=== PATIENT | female | born 1975 | race Caucasian/White ===

== ENCOUNTER → 2020-08-12 15:38 | Outpatient (CLI) | payer BC, SELFPAY ==
--- NOTE | ~2020-08-12 | MR_ITS ---
EXAMINATION: MR thoracic spine wo con DATE: 08/12/2020 16:49 INDICATION: Thoracic back pain. TECHNIQUE: Magnetic resonance imaging (MRI) of the thoracic spine was performed without intravenous c ontrast. Sagittal localizer T1-weighted FSE of the cervical spine was obtained. Thoracic spine sequen bk included sagittal T2-weighted FSE, sagittal T1-weighted FSE, sagittal T2-weighted FS FSE, and axi al T2-weighted FSE. COMPARISON: None FINDINGS: Bone alignment is normal. There are Schmorl's nodes from T7-T8 through T11-T12. There are h emangiomas in T8, T10, T11, and T12 vertebral bodies. There is mildly decreased disc height from T7-T 8 through T9-T10. At T7-T8, there is a left central extrusion with mild central canal stenosis and ve ntral indentation of the spinal cord. At T8-T9, there is a left central extrusion with mild central c anal stenosis. At T9-T10, there is a central extrusion with mild central canal stenosis. At T10-T11, there is a left central extrusion with mild central canal stenosis and ventral indentation of the spi nal cord. There is multilevel mild facet joint osteoarthritis. No neural foraminal stenosis. The spin al cord signal intensity is normal. IMPRESSION: 1. Mild thoracic spondylosis. Reviewed, dictated and finalized at location A.
== END ==
PROVIDERS: PCP Family Medicine
DX: M47.894 Other spondylosis, thoracic region (principal)
CPT/HCPCS: 72146

== ENCOUNTER → 2021-01-08 13:42 | Outpatient (CLI) | payer BC, SELFPAY ==
--- NOTE | ~2021-01-08 | MM_ITS ---
EXAMINATION: MM screening [facility] BI w jose HISTORY: Screening mammogram TECHNIQUE: Craniocaudal and mediolateral oblique 3-D tomosynthesis images were obtained and synthetic 2-D images were generated. CAD analysis was submitted and interpreted. COMPARISON: 09/25/2019, 08/09/2019, 12/09/2017, 11/22/2017 BREAST PARENCHYMAL COMPOSITION: The breasts are heterogeneously dense, which may obscure small masses . FINDINGS: Changes of reduction mammoplasty are again noted. There is no evidence of suspicious mass, calcification, or architectural distortion to suggest malignancy in either breast. There has been no suspicious interval change. IMPRESSION: 1. No mammographic evidence of malignancy. 2. Recommend routine screening mammography in one year. BI-RADS Category 2: Benign finding(s). Reviewed, dictated and finalized at location A.
== END ==
PROVIDERS: Visit Provider Obstetrics & Gynecology
DX: Z12.31 Encounter for screening mammogram for malignant neoplasm of breast (principal)
CPT/HCPCS: 77063; 77067

== ENCOUNTER → 2022-04-20 13:46 | Outpatient (CLI) | payer BC, SELFPAY ==
--- NOTE | ~2022-04-20 | XR_ITS ---
XR knee RT min 4V DATE: 04/20/2022 14:43 INDICATION: Right knee pain TECHNIQUE: Sloan and standing AP, PA and lateral views COMPARISON: None FINDINGS: No fracture or dislocation or joint effusion. No periosteal reaction or bone destruction. J oint spaces are preserved. No radiopaque intra-articular loose body or chondrocalcinosis. IMPRESSION: Negative Reviewed, dictated and finalized at location A. IMPRESSION: Negative
== END ==
PROVIDERS: PCP Family Medicine; Visit Provider Nurse Practitioner
DX: M25.561 Pain in right knee (principal)
CPT/HCPCS: 73564

== ENCOUNTER → 2022-05-13 11:28 | Outpatient (CLI) | payer BC, SELFPAY ==
--- NOTE | ~2022-05-13 | MM_ITS ---
EXAMINATION: MM screening [facility] BI w jose HISTORY: Screening mammogram TECHNIQUE: Craniocaudal and mediolateral oblique 3-D tomosynthesis images were obtained and synthetic 2-D images were generated. CAD analysis was submitted and interpreted. COMPARISON: 3 bilateral screening mammogram 09/25/2019 bilateral diagnostic mammography 08/05/2019 bilateral screening mammogram BREAST PARENCHYMAL COMPOSITION: The breasts are heterogeneously dense, which may obscure small masses . FINDINGS: Stable postoperative change from prior bilateral reduction mammoplasty including some fat n ecrosis/calcifications. There is no evidence of suspicious mass, calcification, or architectural dist ortion to suggest malignancy in either breast. There has been no suspicious interval change. IMPRESSION: 1. No mammographic evidence of malignancy. 2. Recommend routine screening mammography in one year. BI-RADS Category 2: Benign finding(s). Reviewed, dictated and finalized at location A.
== END ==
PROVIDERS: PCP Family Medicine; Visit Provider Nurse Practitioner Obstetrics & Gynecology
DX: Z12.31 Encounter for screening mammogram for malignant neoplasm of breast (principal)
CPT/HCPCS: 77063; 77067

== ENCOUNTER → 2022-06-29 10:00 | Outpatient (CLI) | payer BC, SELFPAY ==
--- NOTE | ~2022-06-29 | MR_ITS ---
EXAMINATION: MR knee RT wo con DATE: 06/29/2022 10:42 INDICATION: A year and a half of intermittent lateral right knee pain TECHNIQUE: Magnetic resonance imaging (MRI) of the right knee was performed without intravenous contr ast. Sequences included coronal PD-weighted FSE, coronal PD-weighted FS FSE, sagittal T2-weighted FS E, sagittal PD-weighted FS FSE and axial PD weighted fat saturated FSE. COMPARISON: None. FINDINGS: Medial compartment: Medial meniscus is normal. Articular cartilage is normal. Lateral compartment: Lateral meniscus is normal. Articular cartilage is normal. Patellofemoral compartment: Small region of partial-thickness chondral fissuring along the caudal aspect of the lateral patellar facet. Remaining patellofemoral cartilage is normal. Ligaments and tendons: Anterior and posterior cruciate ligaments are normal. The medial collateral ligament and fibular afshan ateral ligament complex are normal. The extensor mechanism is normal. The visualized medial and later al hamstring tendons as well as the iliotibial band are normal. Fluid: Physiologic amount of fluid in the joint space. No loose osteochondral bodies identified. Very small Martinez's cyst. Osseous/other: Low signal intensity bone island at the lateral femoral condyle. Bone marrow signal is otherwise norm al. No fracture or pathologic marrow replacing process. IMPRESSION: 1. Small region of partial-thickness chondral fissuring along the caudal margin of the lateral patell ar facet. Remaining cartilage in the knee as well as the menisci and stabilizing ligaments are normal . 2. Very small Martinez's cyst. Reviewed, dictated and finalized at location A. IMPRESSION: 1. Small region of partial-thickness chondral fissuring along the caudal margin of the lateral patellar facet. Remaining cartilage in the knee as well as the menisci and stabilizing ligaments are normal. 2. Very small Martinez's cyst.
== END ==
PROVIDERS: PCP Family Medicine; Visit Provider Nurse Practitioner Family
DX: M71.21 Synovial cyst of popliteal space [Baker], right knee (principal)
CPT/HCPCS: 73721

== ENCOUNTER → 2023-05-18 15:17 | Outpatient (CLI) | payer BC, SELFPAY ==
--- NOTE | ~2023-05-18 | MM_ITS ---
EXAMINATION: MM screening [facility] BI w jose HISTORY: Screening mammogram TECHNIQUE: Craniocaudal and mediolateral oblique 3-D tomosynthesis images were obtained and synthetic 2-D images were generated. Bilateral rotated lateral CC views. CAD analysis was submitted and interp reted. COMPARISON: 05/13/2022, 01/08/2021 bilateral screening mammogram examinations BREAST PARENCHYMAL COMPOSITION: The breasts are heterogeneously dense, which may obscure small masses . FINDINGS: Postoperative change from bilateral reduction mammoplasty in 2019, including benign fat nec rosis with benign calcifications are again noted, stable in appearance. There is no evidence of suspi cious mass, calcification, or architectural distortion to suggest malignancy in either breast. There has been no suspicious interval change. IMPRESSION: 1. No mammographic evidence of malignancy. 2. Recommend routine screening mammography in one year. BI-RADS Category 2: Benign finding(s). Reviewed, dictated and finalized at location A.
== END ==
PROVIDERS: PCP Nurse Practitioner Obstetrics & Gynecology; Visit Provider Nurse Practitioner Obstetrics & Gynecology
DX: Z12.31 Encounter for screening mammogram for malignant neoplasm of breast (principal)
CPT/HCPCS: 77063; 77067

== ENCOUNTER → 2023-05-23 15:25 | Outpatient (CLI) | payer BC, OTHER, SELFPAY ==
--- NOTE | ~2023-05-23 | US_ITS ---
EXAMINATION: US thyroid DATE: 05/23/2023 15:38 INDICATION: Nontoxic single thyroid nodule. TECHNIQUE: Multiple ultrasound images of the thyroid were obtained. COMPARISON: None. FINDINGS: The right thyroid lobe measures 5.9 x 1.6 x 1.5 cm. The left thyroid lobe measures 5.5 x 1.1 x 1.8 c m. In the left thyroid lobe, there is a 15 mm mixed cystic and solid, hypoechoic, wider than tall no dule with smooth margin and punctate echogenic foci (TI-RADS TR4). IMPRESSION: 1. Left thyroid nodule. Ultrasound-guided fine-needle aspiration is recommended. Reviewed, dictated and finalized at location A. IMPRESSION: 1. Left thyroid nodule. Ultrasound-guided fine-needle aspiration is recommended .
== END ==
PROVIDERS: PCP Family Medicine; Visit Provider Family Medicine
DX: E04.1 Nontoxic single thyroid nodule (principal)
CPT/HCPCS: 76536

== ENCOUNTER 2023-06-27 12:38 | Outpatient (CLI) | payer BC, SELFPAY ==
--- NOTE | ~2023-06-27 | US_ITS ---
EXAMINATION: US FNA w image guidance DATE: 06/27/2023 13:31 INDICATION: Left thyroid nodule. TECHNIQUE: The procedure and its benefits and risks were discussed with the patient. Risks specifically discusse d included bleeding. The patient verbalized understanding of the risks and agreed to proceed. The nec k was prepped and draped in the usual sterile manner. 1% lidocaine was used for local anesthesia. 6 passes were made with a 25G needle into the lesion under ultrasound guidance. There were no immedia te complications. FINDINGS: Grayscale ultrasound images demonstrate needles advanced into a 16 mm left thyroid nodule for biopsy. IMPRESSION: 1. Ultrasound-guided fine needle aspiration of a left thyroid nodule. Reviewed, dictated and finalized at location A.
== END 2023-06-27 12:39 | disposition home or self-care (01) ==
PROVIDERS: PCP Family Medicine; Visit Provider Nurse Practitioner Family
DX: E04.1 Nontoxic single thyroid nodule (principal)
CPT/HCPCS: 10005; 88173; 88305

== ENCOUNTER 2024-09-10 14:31 | Outpatient (CLI) | payer BC, SELFPAY ==
--- NOTE | ~2024-09-10 | MM_ITS ---
EXAMINATION: MM screening [facility] BI w jose HISTORY: Screening TECHNIQUE: Craniocaudal and mediolateral oblique 3-D tomosynthesis images were obtained and synthetic 2-D images were generated. CAD analysis was submitted and interpreted. COMPARISON: Comparison to multiple prior studies sequentially, with oldest reviewed study dated 07/18. BREAST PARENCHYMAL COMPOSITION: Dense: The breasts are heterogeneously dense, which may obscure small masses FINDINGS: There are bilateral areas of fat necrosis in the lower outer quadrant of the breasts bilate rally. There is no evidence of suspicious mass, calcification, or architectural distortion to suggest malignancy in either breast. There has been no suspicious interval change. IMPRESSION: 1. No mammographic evidence of malignancy. 2. Recommend routine screening mammography in one year. 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
== END 2024-09-10 14:32 | disposition home or self-care (01) ==
LOC: MICIMG 14:31
PROVIDERS: PCP Family Medicine; Visit Provider Obstetrics & Gynecology
DX: Z12.31 Encounter for screening mammogram for malignant neoplasm of breast (principal)
CPT/HCPCS: 77063; 77067

== ENCOUNTER 2025-04-10 16:45 | Emergency (ER) | payer BC, SELFPAY ==
[2025-04-10 17:13] VITALS: BP 138/89; PULSE 80; RESP 16; TEMP 36.2; O2SAT 100
--- NOTE | 2025-04-10 19:20 | ED.EYEPROB ---
HPI - Eye Problem General Chief complaint: Eye Problems Stated complaint: painful and swollen lt eye Time Seen by Provider: 04/10/25 17:25 Source: patient and RN notes reviewed Mode of arrival: ambulatory Limitations: no limitations History of Present Illness HPI Narrative: 49-year-old female presents Express Care complaining of my eyelid swelling and pain to the corner of her eyelid. Stated pain started yesterday. Patient denies any discharge, redness, eye pain, pain with eye movement, vision changes, blurry vision, or any other symptoms. Patient noticed that the corner of her lateral eye lid where her eyelids meet appears red and swollen and feels irritated. Patient denies any fevers, body aches, headaches, chills, nausea, vomiting, or any other symptoms. Related Data Home Medications ?Medication ?Instructions ?Recorded ?Confirmed ?Last Taken ?Type levonorgestrel (Mirena) 1 device intrauterine ONCE 09/10/19 04/11/24 Unknown History gabapentin 300 mg capsule 300 mg PO DAILY 02/23/24 04/11/24 Unknown History minoxidil 10 mg tablet mg 04/10/25 Unknown History Allergies Allergy/AdvReac Type Severity Reaction Status Date / Time adhesive Allergy Intermediate Rash Verified 04/10/25 17:22 Review of Systems Review of Systems: CONSTITUTIONAL: Denies fever, chills, or sweats. EYES: Denies visual changes, redness, blurry vision, or discharge. Positive for eyelid swelling and redness. ENT: Denies rhinorrhea, congestion, sore throat, or otalgia. CARDIOVASCULAR: Denies chest pain, palpitations, or edema. RESPIRATORY: Denies cough or dyspnea. GASTROINTESTINAL: Denies abdominal pain, nausea, vomiting, or diarrhea. GENITOURINARY: Denies dysuria or hematuria. SKIN: Denies rash or itching. MUSCULOSKELETAL: Denies back pain, joint pain, or myalgia. NEUROLOGIC: Denies headache, numbness, or weakness. PSYCHIATRIC: Denies anxiety or depression. All other systems reviewed are negative, except as documented in HPI. FORMERLY [facility] Past Medical History Medical History Bilateral hand numbness Blurry vision, right eye Constipation Abdominal pain History of adverse reaction to anesthesia Numbness and tingling of right leg Entrapment of superficial peroneal nerve Right knee pain Cyst of eye Pneumonia Migraine Allergies Vertigo Surgical History Surgical History H/O gynecological procedure Mirena iud removal and reinsertion 12/2020 H/O bilateral breast reduction surgery 2018 History of tonsillectomy 2015 Hx of LASIK 2008 History of shoulder surgery 2002- Left Family History Family History Father Diabetes mellitus Father Heart disease Mother Heart disease Grandparent Breast cancer Grandparent Lung cancer Grandparent Heart disease Grandparent Hypertension Other Acute myocardial infarction Arthritis Depression High cholesterol Kidney disorder Neuropathy Social History Social History Smoking packs per day: 0.5 Smoking cigarettes per day: 10.0 Years smoked: 5 Smoking pack-years: 2.50 Smoking status: Former smoker Tobacco type: cigarettes Second hand tobacco smoke exposure: No Smoking end date: 10/17/08 Additional smoking assessment comments: started 2006 through 2008 aout 1 pack daily / age 20 thru age 26 about a pa Alcohol intake: current Drinks per week: 3 Alcohol use details: wine/beer couple drinks a week Substance use: never Substance use type: does not use Do You Feel Safe in your Home?: Yes Lack of Transportation: No Lack of Food: Never True Current Housing: I Have Housing Concerned About Future Housing: No Difficulty Paying Gas/Electric Bills: No Difficulty Paying for Meds: No Currently Unemployed: No Education: Master's Degree or Higher Difficulty w/ Childcare or Family Care: No Living arrangements: with family Additional living arrangements comments: Occupation/Education: occupation Gender identity (if verbalized by the patient): Female Sexual Orientation (if Verbalized by the Patient): Straight or Heterosexual Comments At the time of my signature, I reviewed and agree with the nursing past medical, surgical, social, and family history. There is no relevant family history pertinent to the patient complaint. Exam Narrative: GENERAL: This is a well-nourished, well-developed adult, in no apparent distress. They are non ill-appearing, nontoxic appearing. HEAD: normocephalic, atraumatic. EYES: Sclera clear/white. Conjunctiva normal. Vision is grossly intact. Extraocular movements intact. Pupils PERRLA. Right upper and lower eyelid normal. Left upper and lower eyelid without obvious redness or swelling. There is mild erythema lateral canthus. No exudate or obvious swelling. Eversion of left upper and lower without evidence of stye or retained foreign body. EARS: External ears normal, auditory canals clear and without drainage, TMs normal without perforation. Hearing grossly intact. NOSE: External nose normal with no obvious nasal discharge, nasal turbinates without redness, no rhinorrhea. THROAT: Mucous membranes moist, posterior pharynx clear, without erythema or swelling. Uvula midline. NECK: Neck supple, non-tender without lymphadenopathy, masses or thyromegaly. CARDIOVASCULAR: Regular rate and rhythm without murmurs, gallops, or rubs. RESPIRATORY: Clear to auscultation. Breath sounds equal bilaterally. No wheezes, rales, or rhonchi. SKIN: warm, Dry, intact with no suspicious lesions or rash, good texture and turgor. NEURO: awake, alert, and oriented to person, place and time. There were no obvious focal neurologic abnormalities. EXTREMITIES: No joint tenderness, effusion, or edema noted. Course Course Emergency Course: Portions of this record may have been created with voice recognition software Level of Care: Express Care Visit Vital Signs Vital signs: Vital Signs Temperature 97.1 F L 04/10/25 17:13 Pulse Rate 80 04/10/25 17:13 Respiratory Rate 16 04/10/25 17:13 Blood Pressure 138/89 04/10/25 17:13 Pulse Oximetry 100 04/10/25 17:13 Temperature 97.1 F L 04/10/25 17:13 Pulse Rate 80 04/10/25 17:13 Respiratory Rate 16 04/10/25 17:13 Blood Pressure 138/89 04/10/25 17:13 Pulse Oximetry 100 04/10/25 17:13 Reviewed MDM - Eye Problem MDM Narrative Medical decision making narrative: Evidence of infection to eye or eyelid. No vision problems. No evidence of periorbital cellulitis. No obvious stye formation present. Likely irritation to the lateral canthus. Recommend artificial tears and warm compresses. Discussed physical exam findings. Advised supportive measures and signs/symptoms to go to the ER. Pt is appropriate for outpt treatment and f/u. Differential Diagnosis Differential diagnosis: Likely conjunctivitis and other (hordeloum, allergies, dry eyes) Critical Care Time Critical Care Time Critical Care Time: No Discharge Plan Discharge Clinical Impression: Eyelid pain Patient Disposition: Home Condition: Stable Instructions: Eyelid Swelling (ED) Additional Instructions: Apply warm, moist compresses on the affected area frequently (for 5 to 10 minutes three to five times per day) in order to help with drainage. Massage and gentle wiping of the affected eyelid after the warm compress can also help with drainage. You can use baby shampoo to wash the eye area Avoid wearing eye makeup or contact lenses May take Zyrtec or Claritin as needed for any allergy symptoms. Follow-up PCP in 3-5 days. If you develops any worsening redness, swelling, fevers, eye pain, vision changes, or any concerns please go to the ER immediately. Patient Language: Montserratian Prescriptions: No Action minoxidil 10 mg tablet Mirena 20 mcg/24 hours (5 yrs) 52 mg intrauterine device 1 device I-UTERINE ONCE clobetasol 0.05 % ointment 1 applic topical BID 28 Days Qty: 60 11RF Rx Instructions: then continue daily for 4 weeks, then every other day for 4 weeks, then at least 1-2x/week thereafter estradiol 0.01 % (0.1 mg/gram) cream 1 g vaginal 2XW Qty: 42.5 6RF gabapentin 300 mg capsule 300 mg PO DAILY Follow-up/Referrals: Madison Newton MD [Primary Care Provider] - Time of Disposition: 17:44
== END 2025-04-10 17:48 | disposition home or self-care (01) ==
PROVIDERS: PCP Family Medicine
DX: H57.12 Ocular pain, left eye (principal); Z87.891 Personal history of nicotine dependence
CPT/HCPCS: 99211; G0463

== ENCOUNTER 2025-10-08 16:53 | Emergency (ER) | payer BC, SELFPAY ==
[2025-10-08 17:04] VITALS: BP 139/78; PULSE 98; RESP 16; TEMP 36.5; O2SAT 99
--- NOTE | 2025-10-08 17:29 | ED_ITS ---
HPI - Skin/Abscess/Foreign Bdy General Chief complaint: Skin/Abscess/Foreign Body Stated complaint: ABSCESS Time Seen by Provider: 10/08/25 17:21 Source: patient and RN notes reviewed Mode of arrival: ambulatory Limitations: no limitations History of Present Illness HPI narrative: 50-year-old female patient presents today with an abscess to the right labia. States she has had a cyst in this area for approximately 8 months, which has become more red and painful over the last 3 days. No OTC treatment prior to arrival. No history of abscesses. Related Data Home Medications ?Medication ?Instructions ?Recorded ?Confirmed ?Last Taken ?Type levonorgestrel (Mirena) 1 device intrauterine ONCE 1 11/10/18 06/06/25 Unknown History gabapentin 300 mg capsule 300 mg PO DAILY 02/23/24 Unknown History minoxidil 10 mg tablet mg 04/10/25 06/06/25 Unknown History Allergies Allergy/AdvReac Type Severity Reaction Status Date / Time adhesive Allergy Intermediate Rash Verified 10/08/25 17:24 PMFSH Past Medical History Medical History Bilateral hand numbness Blurry vision, right eye Constipation Abdominal pain History of adverse reaction to anesthesia Numbness and tingling of right leg Entrapment of superficial peroneal nerve Right knee pain Cyst of eye Pneumonia Migraine Allergies Vertigo Surgical History Surgical History H/O gynecological procedure Mirena iud removal and reinsertion 12/2020 H/O bilateral breast reduction surgery 2018 History of tonsillectomy 2015 Hx of LASIK 2008 History of shoulder surgery 2002- Left Family History Family History Father Diabetes mellitus Father Heart disease Mother Heart disease Grandparent Breast cancer Grandparent Lung cancer Grandparent Heart disease Grandparent Hypertension Other Acute myocardial infarction Arthritis Depression High cholesterol Kidney disorder Neuropathy Social History Social History Smoking packs per day: 0.5 Smoking cigarettes per day: 10.0 Years smoked: 5 Smoking pack-years: 2.50 Smoking status: Former smoker Tobacco type: cigarettes Second hand tobacco smoke exposure: No Smoking end date: 10/17/08 Alcohol intake: current Alcohol use details: wine/beer couple drinks a week Substance use: never Substance use type: does not use Lack of Transportation: No Lack of Food: Never True Current Housing: I Have Housing Concerned About Future Housing: No Difficulty Paying Gas/Electric Bills: No Difficulty Paying for Meds: No Currently Unemployed: No Education: Master's Degree or Higher Difficulty w/ Childcare or Family Care: No Living arrangements: with family Additional living arrangements comments: Occupation/Education: occupation 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 Please see nursing chart for further information. There is no relevant family history pertinent to the presenting complaint Exam Narrative: GENERAL: Well-appearing, well-nourished, and in no acute distress. HEAD: Normocephalic, atraumatic. EYES: EOMI. No redness or drainage. Conjunctivae normal. ENT: Mucous membranes pink and moist. NECK: Normal AROM. CHEST: No respiratory distress. : Small abscess to the right labia measuring approximately 1.5 cm round. Fluctuant in the center and surrounded by erythema. Tender to palpation. No active drainage. EXTREMITIES: Normal range of motion. No edema. SKIN: Warm, dry, no rash. Capillary refill normal. Normal skin turgor. NEURO: No focal deficits. Alert and oriented x3. Gait steady. PSYCH: Normal affect. No signs of depression or anxiety. Course Course Level of Care: Express Care Visit Vital Signs Vital signs: Vital Signs Temperature 97.7 F 10/08/25 17:04 Pulse Rate 98 10/08/25 17:04 Respiratory Rate 16 10/08/25 17:04 Blood Pressure 139/78 10/08/25 17:04 Pulse Oximetry 99 10/08/25 17:04 Temperature 97.7 F 10/08/25 17:04 Pulse Rate 98 10/08/25 17:04 Respiratory Rate 16 10/08/25 17:04 Blood Pressure 139/78 10/08/25 17:04 Pulse Oximetry 99 10/08/25 17:04 Reviewed Procedures Abscess I/D right labia: Date of Incision: 10/08/25 Time of Incision: 17:30 Side (if applicable): right Local Anesthetic: lidocaine 1% Amount of anesthesia used (mL): 2 Technique: incised with #11 blade Amount of fluid expressed (mL): 1 Irrigation: No Packing used?: none I&D Results: Pus and Blood Abcess I&D Additional Comments: Patient tolerated procedure well. MDM MDM Narrative Medical decision making narrative: 50-year-old female patient presents today with an abscess to the right labia. States she has had a cyst in this area for approximately 8 months, which has become more red and painful over the last 3 days. No OTC treatment prior to arrival. No history of abscesses. Upon exam, Small abscess to the right labia measuring approximately 1.5 cm round. Fluctuant in the center and surrounded by erythema. Tender to palpation. No active drainage. I and D performed successfully. Patient will be started on a course of Keflex. Care instructions given. Vital signs stable. Differential Diagnosis Differential Diagnosis: Abscess, cellulitis, folliculitis Critical Care Time Critical Care Time Critical Care Time: No Discharge Plan Discharge Clinical Impression: Abscess of right genital labia Patient Disposition: Home Condition: Stable Instructions: Antibiotic Form, Abscess Incision and Drainage (DC) Additional Instructions: Your abscess has been lanced and drained. Wash daily with soap and water. Keep covered until scabbed over. Take the Keflex as prescribed until gone. Take Tylenol or ibuprofen if needed for pain. Follow-up with your PCP in 3 days if symptoms are not improving. Patient Language: Yoruba Prescriptions: New cephalexin 500 mg capsule 500 mg PO Q6H 7 Days Qty: 28 0RF No Action minoxidil 10 mg tablet Mirena 20 mcg/24 hours (5 yrs) 52 mg intrauterine device 1 device I-UTERINE ONCE clobetasol 0.05 % ointment 1 applic topical BID 28 Days Qty: 60 11RF Rx Instructions: then continue daily for 4 weeks, then every other day for 4 weeks, then at least 1-2x/week thereafter gabapentin 300 mg capsule 300 mg PO DAILY estradiol [Laura] 0.05 mg/24 hr patch semiweekly 1 patch transdermal 2XW Qty: 24 3RF Rx Instructions: apply 1 patch for 3 days alternating with 1 patch for 4 days each week Follow-up/Referrals: Madison Newton MD [Primary Care Provider, Family Practice] Time of Disposition: 17:47
[2025-10-08] MEDS: LIDOCAINE 1% LOCAL INJ 2 ML AMPUL 4 ML INFILTRATE (17:31)
--- NOTE | 2025-10-08 18:14 | PC.NURSE ---
1735- see TUBE FILLER notes for procedure and dressing was just gauze 4x4's secured with paper tape.
== END 2025-10-08 17:50 | disposition home or self-care (01) ==
PROVIDERS: Emergency Provider Nurse Practitioner; PCP Family Medicine
DX: N76.4 Abscess of vulva (principal); Z87.891 Personal history of nicotine dependence
CPT/HCPCS: 56405; 99213; G0463; J2003